=== PATIENT | male | born 1950 | race Caucasian/White ===

== ENCOUNTER → 2023-10-04 12:17 | Outpatient (REF) | payer OTHER, SELFPAY | LOC: RAD 12:17 | PROVIDERS: ATTENDING PHYSICIAN Nurse Practitioner Family; FAMILY PHYSICIAN Family Medicine | DX: R06.2 Wheezing (principal) | CPT/HCPCS: 71046 ==

== ENCOUNTER → 2023-12-01 12:55 | Outpatient (REF) | payer OTHER, SELFPAY | LOC: RAD 12:55 | PROVIDERS: ATTENDING PHYSICIAN Internal Medicine Endocrinology, Diabetes & Metabolism; FAMILY PHYSICIAN Family Medicine | DX: E04.2 Nontoxic multinodular goiter (principal) | CPT/HCPCS: 76536 ==

== ENCOUNTER 2024-05-22 06:22 | Day surgery (SDC) | payer OTHER, SELFPAY | END 2024-05-22 15:06 | disposition home or self-care (01) | LOC: GI 06:22 | PROVIDERS: ATTENDING PHYSICIAN Internal Medicine Gastroenterology; FAMILY PHYSICIAN Family Medicine | DX: Z12.11 Encounter for screening for malignant neoplasm of colon (principal); K57.30 Diverticulosis of large intestine without perforation or abscess without bleeding; K64.8 Other hemorrhoids | CPT/HCPCS: G0105 ==

== ENCOUNTER → 2024-11-23 09:04 | Outpatient (REF) | payer OTHER, SELFPAY ==
--- NOTE | 2024-11-23 10:50 | CARDSERVDEF ---
Echocardiogram with Definity completed after protocol screening completed. Allergies verified.
Patent IV site: _Left median antecubital 22 G PC____
IV site flushed with 0.9% NaCl pre and post administration.
Diluted bolus method utilized to enhance visualization of ventricular flower.
Total volume given: __3__ mL
Few minutes after Definity given pt stated he saw blue and red circles when looking at light, resolved after few minutes. Pt denied any SOB, denies dizziness, alert and oriented x3. BP 108/60, denies tingling, denies tongue swelling. Dr Guzman in
to see pt.States 'I feel fine now' after few minutes.
--- NOTE | 2024-11-23 10:55 | PTCARENOTE ---
Observing patient in Cardiac Services , continues to deny any symptoms, denies seeing any colored dots, denies any symptoms. 138/85, O2 sat is 100%, offers no complaints. Given juice, pt states he did not eat today. Color pink, skin warm. No change
in status.
--- NOTE | 2024-11-23 11:20 | PTCARENOTE ---
BP 136/72, HR 88/minute. Pt denies any symptoms, denies seeing circles, denies back pain, denies SOB. states he feels 'fine'. skin warm and dry, drinking juice. No change in status.
--- NOTE | 2024-11-23 11:51 | PTCARENOTE ---
Dr Guzman in to see pt, pt offers no complaints, denies any change any vision, denies any circles or color spots, denies back pain. Heplock D/C ed at 1152, site clear, no redness, no edema. Pressure held, no bleeding, 2x2 applied and taped.
Definity listed as possible allergy in record. Offers no complaints.
== END ==
LOC: RCS 09:04
PROVIDERS: ATTENDING PHYSICIAN Internal Medicine Cardiovascular Disease; FAMILY PHYSICIAN Family Medicine
DX: I48.0 Paroxysmal atrial fibrillation (principal)
CPT/HCPCS: 93306

== ENCOUNTER → 2024-11-30 09:49 | Outpatient (REF) | payer OTHER, SELFPAY | LOC: RAD 09:49 | PROVIDERS: ATTENDING PHYSICIAN Internal Medicine Endocrinology, Diabetes & Metabolism; FAMILY PHYSICIAN Family Medicine | DX: E04.2 Nontoxic multinodular goiter (principal) | CPT/HCPCS: 76536 ==

== ENCOUNTER 2024-12-01 09:16 | Day surgery (SDC) | payer OTHER, SELFPAY ==
[2024-11-30 13:18] VITALS: BMI 25.0
[2024-11-30 13:36] LABS: Hematocrit 41.9 % (39.0-52.0); Hemoglobin 14.2 g/dL (13.0-18.0); Mean Corp Hgb Conc. 33.9 g/dL (33.0-37.0); Mean Corpuscular Volume 95.7 fL (80.0-94.0); Nucleated Red Blood Cells % 0 % (-); Platelet Count 198 10^3/uL (130-400); Red Cell Dist. Width 13.1 % (11.5-14.5)
[2024-11-30 14:17] LABS: ALT (SGPT) 42 U/L (0-50); AST (SGOT) 30 U/L (17-59); Albumin 4.5 g/dl (3.5-5.0); Alkaline Phosphatase 50 U/L (38-126); Blood Urea Nitrogen 18 mg/dl (9-20); Calcium 9.3 mg/dl (8.4-10.2); Carbon Dioxide 25 mmol/L (22-30); Chloride 107 mmol/L (98-107); Estimated Creatinine Clearance 74 ml/min; Glucose 101 mg/dl (70-99); Potassium 4.2 mmol/L (3.5-5.1); Sodium 140 mmol/L (135-145); Total Protein 7.1 g/dl (6.3-8.2); eGFR > 60.00
[2024-12-01] VITALS (17 sets, daily range): BP systolic 99–138; BP diastolic 55–93; BMI 25.0
--- NOTE | 2024-12-01 11:24 | ITS.CL.CATH ---
[facility] - Catheterization
Cardiac Catheterization
Procedure Report:
CARDIAC CATHETERIZATION REPORT
Date of Procedure: 12/01/2024
Referring: Cindy Rose M.D.
INDICATION: Abnormal echocardiogram with hypokinesis of the inferolateral wall.
PROCEDURE:
1. Left heart catheterization.
2. Coronary angiography.
A total of 18 minutes of procedural/moderate sedation was utilized. An independent internist medical doctor md was present to assist with and help manage the patient's level of consciousness and physiologic status.
ACCESS:
1. 6 [place] right radial artery using a modified Seldinger technique delete the.
CATHETERS:
1. 5 [place] JR4.
2. 5 [place] JL 3.5.
HEMODYNAMIC DATA
Weight (kg): 64.9
AO (s/d/x, mmHg): 128/75/97
LV (s/x mmHg): 128/10
LEFT VENTRICULOGRAPHY: Not performed.
CORONARY ANGIOGRAPHY
Dominance: Right.
Left Main: Short, broad, bifurcating vessel. There is no coronary artery disease.
LAD: Normal size vessel giving rise to 1 significant diagonal. There are minor luminal irregularities throughout the entire mid and distal vessel.
Ramus: Congenitally absent.
Circumflex: Large size, nondominant vessel that is essentially 1 large obtuse marginal which subsequently bifurcates into 2 notable vessels. The upper branch is a medium size vessel supplying the lateral wall. The lower branch is a large size
vessel supplying the inferolateral wall. There is no coronary artery disease.
RCA: Normal size, dominant vessel. There is no coronary artery disease.
INTERVENTION(S)
None.
Closure Device: Vascular band.
Radiation (mGy): 277
DAP (cm2.Gy): 13.1
Fluoroscopy time (minutes): 2.0
CONCLUSIONS
1. Right dominant circulation with luminal irregularities in the mid and distal LAD but no occlusive coronary artery disease.
2. Normal filling pressures (LVEDP = 10 mmHg at 64.9 kg).
RECOMMENDATIONS:
1. Expectant management after cardiac catheterization via right radial approach.
2. Limited weight bearing on the right wrist for one week.
3. Aggressive primary prevention with high-dose, high potency statin given history of CVA and nonobstructive coronary atherosclerosis. Goal LDL <55.
4. No ischemic source for inferolateral hypokinesis seen on echocardiography.
5. Continue OMT/GDMT as hemodynamics will tolerate.
6. Stable for outpatient follow-up.
Copy to: Cindy Rose M.D., Alcides Dacosta D.O.
Kurt Rangel DO, FACC, FACP
[2024-12-01] MEDS: NSS 195 ML IV (11:47)
[2024-12-01] MEDS: NSS 1000 IV (11:48)
== END 2024-12-01 16:00 | disposition home or self-care (01) ==
LOC: CATH 09:16
PROVIDERS: ATTENDING PHYSICIAN Internal Medicine Cardiovascular Disease; FAMILY PHYSICIAN Family Medicine; OTHER PHYSICIAN Internal Medicine Cardiovascular Disease
DX: Z13.6 Encounter for screening for cardiovascular disorders (principal); R93.1 Abnormal findings on diagnostic imaging of heart and coronary circulation; E03.8 Other specified hypothyroidism; E78.5 Hyperlipidemia, unspecified; I10 Essential (primary) hypertension; I48.0 Paroxysmal atrial fibrillation; I49.5 Sick sinus syndrome; Z79.01 Long term (current) use of anticoagulants; Z79.82 Long term (current) use of aspirin; Z79.899 Other long term (current) drug therapy; Z86.73 Personal history of transient ischemic attack (TIA), and cerebral infarction without residual deficits; Z87.891 Personal history of nicotine dependence; Z95.0 Presence of cardiac pacemaker; I34.0 Nonrheumatic mitral (valve) insufficiency; D75.89 Other specified diseases of blood and blood-forming organs; I70.0 Atherosclerosis of aorta; I48.91 Unspecified atrial fibrillation
CPT/HCPCS: 99152; 36415; 80053; 85025; 93005; 93458; C1894; Q9967